=== PATIENT | female | born 1960 | race Caucasian/White ===

== ENCOUNTER 2025-07-08 14:39 | Outpatient (CLI) | payer MEDICARE, SELFPAY | END 2025-07-08 14:40 | disposition home or self-care (01) | PROVIDERS: Visit Provider Nurse Practitioner Family | DX: Z13.9 Encounter for screening, unspecified (principal); Z13.6 Encounter for screening for cardiovascular disorders | CPT/HCPCS: 80053; 80061 ==

== ENCOUNTER 2025-07-29 14:08 | Outpatient (CLI) | payer MEDICARE, SELFPAY | END 2025-07-29 14:09 | disposition home or self-care (01) | LOC: LKVREF 14:09 | PROVIDERS: PCP Nurse Practitioner Family; Visit Provider Physician Assistant Medical | DX: R07.9 Chest pain, unspecified (principal) | CPT/HCPCS: 83690; 84484; 87086 ==

== ENCOUNTER 2025-08-10 08:33 | Outpatient (CLI) | payer MEDICARE, SELFPAY ==
--- NOTE | 2025-08-10 09:00 | CRLHL7_ITS ---
For Patients: As a result of the Century Cures Act, medical imaging exams and procedure reports are released immediately into your electronic medical record. You may view this report before your referring provider. If you have questions, please contact your health care provider. Indication: ABNORMAL FINDING ON CXR, PAIN ON RT BACK AREA, FEELS LIKE SHE IS LAYING ON SOMETHING Technique: Noncontrast CT chest Please note that all CT scans at this facility use dose modulation, iterative reconstruction, and/or weight-based dosing when appropriate to reduce radiation dose to as low as reasonably achievable. Comparison: Chest x-ray 07/29/2025 Findings: Minimal scarring in the right upper lobe. No pulmonary nodule. No infiltrate or edema. No effusion or pneumothorax. Minimal scarring at the left lung base. Mild amount of pericardial fluid. The visualized thyroid is normal. No adenopathy. Mild vascular calcifications. Fatty liver. 3.6 cm simple cyst arises from the upper pole of the right kidney. No adrenal nodule. No fracture. Impression: No pulmonary nodule. Mild pericardial effusion. Hepatic steatosis. Please note that all CT scans at this facility use dose modulation, iterative reconstruction, and/or weight-based dosing when appropriate to reduce radiation dose to as low as reasonably achievable. Dictated by George Vora MD @ 08/10/2025 9:36:33 AM (Electronically Signed)
== END 2025-08-10 08:34 | disposition home or self-care (01) ==
PROVIDERS: PCP Nurse Practitioner Family; Visit Provider Physician Assistant Medical
DX: R93.89 Abnormal findings on diagnostic imaging of other specified body structures (principal); I31.39 Other pericardial effusion (noninflammatory); K76.0 Fatty (change of) liver, not elsewhere classified; M54.9 Dorsalgia, unspecified
CPT/HCPCS: 71250